=== PATIENT | male | born 1950 | race Caucasian/White ===

== ENCOUNTER 2020-12-17 06:08 | Inpatient (IN) ==
[~2020-12-17 06:08] MED LIST: Dextrose 50 % in Water (Vial) 30 ML, Sodium Bicarbonate 20 MEQ, Lidocaine 1% 5 ML, Insu... TH ONE; Dextrose 50 % in Water (Vial) 30 ML, Sodium Bicarbonate 20 MEQ, Potassium Chloride 15 M... TH ONE; Heparin 15,000 UNIT in 0.9 % Sodium Chloride 500 ML IV ONE; Norepinephrine 4 MG in 0.9 % Sodium Chloride 250 ML IVC PRN
[2020-12-17] MEDS ORDERED: Chlorhexidine Rinse 15 ML MOUTHWASH MM ONE (06:31)
[2020-12-17] MEDS ORDERED: CeFAZolin Syr 2,000MG/20 ML 2,000 MG/20 ML SYRINGE IVPB ONE (06:31)
[2020-12-17] MEDS ORDERED: Ringers Solution, Lactated 1,000 ML IVC SCH (06:45)
[2020-12-17] MEDS ORDERED: *HR* Vasopressin 20 UNIT/ML VIAL ONE (06:45)
[2020-12-17] MEDS ORDERED: *HR* Midazolam HCl 5 MG/5 ML VIAL IVP ONE (06:47)
[2020-12-17] MEDS ORDERED: *HR* FentaNYL (PF) 1,000 MCG/20 ML VIAL ONE (06:47)
[2020-12-17] MEDS ORDERED: *HR* Propofol 200 MG/20 ML VIAL IVP ONE (06:47)
[2020-12-17] MEDS ORDERED: Tranexamic Acid 1,000 MG/10 ML VIAL ONE (06:48)
[2020-12-17] MEDS ORDERED: *HR* Magnesium Sulfate 1 GM/2 ML VIAL ONE (06:48)
[2020-12-17] MEDS ORDERED: *HR* Rocuronium Bromide 50 MG/5 ML VIAL ONE ×3 (06:48→12:45)
[2020-12-17] MEDS ORDERED: Lidocaine 2% Syringe 100 MG/5 ML ONE (06:48)
[2020-12-17] MEDS ORDERED: Famotidine 20 MG/2 ML VIAL ONE (06:48)
[2020-12-17] MEDS ORDERED: Aspirin 81 MG TAB.CHEW PO ONE (06:59)
[2020-12-17 09:06] LABS: ABG Base Excess -2 mEq/L (-2 to 3); ABG Chloride 106 mEq/L (98-107); ABG Glucose 116 mg/dL (60-95); ABG HCO3 25 mEq/L (21-27); ABG Oxygen Saturation 100 % (95-98); ABG PCO2 49 mmHg (35-45); ABG PH 7.32 pH Units (7.32-7.45); ABG PO2 278 mmHg (85-104); ABG TCO2 27 mEq/L (20-26)
[2020-12-17] MEDS ORDERED: Vancomycin (wt based) 1,000 MG VIAL IVPB ONE (09:13)
[2020-12-17] MEDS ORDERED: Vancomycin 1,500 MG/265 ML IV.SOLN IVPB ONE (09:21)
[2020-12-17] MEDS ORDERED: *HR* FentaNYL (PF) 250 MCG/5 ML VIAL ONE (10:18)
[2020-12-17 10:31] LABS: ABG Base Excess -2 mEq/L (-2 to 3); ABG Chloride 106 mEq/L (98-107); ABG Glucose 125 mg/dL (60-95); ABG HCO3 24 mEq/L (21-27); ABG Ionized Calcium 1.09 mmol/L (1.15-1.35); ABG Oxygen Saturation 100 % (95-98); ABG PCO2 41 mmHg (35-45); ABG PH 7.37 pH Units (7.32-7.45); ABG PO2 200 mmHg (85-104); ABG TCO2 25 mEq/L (20-26)
[2020-12-17] MEDS ORDERED: Protamine Sulfate 50 MG/5 ML VIAL IVP ONE (11:29)
[2020-12-17] MEDS ORDERED: Protamine Sulfate 250 MG/25 ML VIAL IVP ONE (11:29)
[2020-12-17] MEDS ORDERED: Calcium Gluconate 1,000 MG/10 ML VIAL ONE (11:29)
[2020-12-17 11:33] LABS: ABG Base Excess -1 mEq/L (-2 to 3); ABG Chloride 103 mEq/L (98-107); ABG Glucose 127 mg/dL (60-95); ABG HCO3 25 mEq/L (21-27); ABG Ionized Calcium 1.08 mmol/L (1.15-1.35); ABG Oxygen Saturation 100 % (95-98); ABG PCO2 46 mmHg (35-45); ABG PH 7.34 pH Units (7.32-7.45); ABG PO2 485 mmHg (85-104); ABG TCO2 26 mEq/L (20-26)
[2020-12-17 12:13] LABS: ABG Base Excess -1 mEq/L (-2 to 3); ABG Chloride 103 mEq/L (98-107); ABG Glucose 140 mg/dL (60-95); ABG HCO3 24 mEq/L (21-27); ABG Ionized Calcium 1.07 mmol/L (1.15-1.35); ABG Oxygen Saturation 100 % (95-98); ABG PCO2 39 mmHg (35-45); ABG PH 7.39 pH Units (7.32-7.45); ABG PO2 477 mmHg (85-104); ABG TCO2 25 mEq/L (20-26)
[2020-12-17] MEDS ORDERED: Albumin Human 5% 12.5 GM/250 ML IV.SOLN ONE ×2 (12:26→12:55)
[2020-12-17 13:11] LABS: ABG Base Excess -3 mEq/L (-2 to 3); ABG Chloride 107 mEq/L (98-107); ABG Glucose 108 mg/dL (60-95); ABG HCO3 22 mEq/L (21-27); ABG Ionized Calcium 1.17 mmol/L (1.15-1.35); ABG Oxygen Saturation 99 % (95-98); ABG PCO2 38 mmHg (35-45); ABG PH 7.37 pH Units (7.32-7.45); ABG PO2 141 mmHg (85-104); ABG TCO2 23 mEq/L (20-26)
[2020-12-17] MEDS ORDERED: Acetaminophen 650 MG RECTAL SUPP RC PRN (13:11)
[2020-12-17] MEDS ORDERED: Ondansetron 4 MG/2 ML VIAL IVP PRN (13:11)
[2020-12-17] MEDS ORDERED: Naloxone 0.4 MG/ML INJ IVP PRN (13:11)
[2020-12-17] MEDS ORDERED: Albumin Human 5% 12.5 GM/250 ML IV.SOLN IVPB PRN (13:11)
[2020-12-17] MEDS ORDERED: Calcium Gluconate 1gm/50mL 1 GM/50 ML BAG IVPB PRN (13:11)
[2020-12-17] MEDS ORDERED: Acetaminophen 325 MG TABLET PO PRN (13:11)
[2020-12-17] MEDS ORDERED: Insulin Regular, Human 100 UNIT/ML IV PRN (13:11)
[2020-12-17] MEDS ORDERED: Potassium Chloride 40 MEQ/200 ML BAG IVPB PRN (13:11)
[2020-12-17] MEDS ORDERED: *HR* Dextrose 50 % in Water (Syg) 50 ML SYRINGE IVP PRN (13:11)
[2020-12-17] MEDS ORDERED: Albumin Human 25% 25 GM/100 ML IV.SOLN IVPB ONE (14:08)
[2020-12-17] MEDS ORDERED: *HR* Magnesium Sulfate 2 GM/50 ML PIGGYBACK IVPB ONE (14:08)
[2020-12-17] MEDS ORDERED: *HR* Phenylephrine 10 MG/ML VIAL IVC ONE (14:08)
[2020-12-17] MEDS ORDERED: Heparin 1,000 UNITS/500 mL IV.SOLN IR ONE (14:08)
[2020-12-17] MEDS ORDERED: D5% in Water 250 ML IV BAG IV ONE (14:08)
[2020-12-17] MEDS ORDERED: *HR* Heparin 10,000 UNIT/10 ML VIAL IR ONE (14:08)
[2020-12-17] MEDS ORDERED: Lidocaine 2% Syringe 100 MG/5 ML IVP ONE (14:08)
[2020-12-17] MEDS ORDERED: Mannitol 25% vial 12.5 GM/50 ML VIAL IVPB ONE (14:08)
[2020-12-17] MEDS ORDERED: Tranexamic Acid 1,000 MG/10 ML VIAL IR ONE (14:08)
[2020-12-17] MEDS: *HR* FentaNYL (PF) 100 MCG/2 ML VIAL IVP PRN ×5 (14:15→22:35)
[2020-12-17] MEDS ORDERED: niCARdipine 20 MG/200 ML MLS IVC ONE (14:19)
[2020-12-17] MEDS ORDERED: *HR* FentaNYL (PF) 100 MCG/2 ML VIAL ONE (14:34)
[2020-12-17 14:37] LABS: Basophils % 0.2 %; Eosinophils # 0.1 K/mcL (0.0-0.6); Eosinophils % 0.3 %; Hematocrit 40.3 % (37.5-50.1); Immature Granulocytes % 1.1 % (0-4); Lymphocytes # 1.3 K/mcL (0.6-4.6); Lymphocytes % 5.8 %; Mean Corpuscular HGB Conc 34.7 g/dL (31.6-35.5); Mean Corpuscular Hemoglobin 33.3 pg (28.0-33.3); Monocytes % 9.1 %; Neutrophils # 18.3 K/mcL (1.6-8.9); Platelet Count 127 K/mcL (140-400); Red Cell Distribution Width 11.8 % (11.5-14.5); Segmented Neutrophils % 83.5 %; White Blood Count 21.9 K/mcL (4.3-11.1)
[2020-12-17 14:37] LABS: ABG Base Excess -1 mEq/L (-2 to 3); ABG HCO3 26 mEq/L (21-27); ABG Oxygen Saturation 96 % (95-98); ABG PCO2 53 mmHg (35-45); ABG PH 7.31 pH Units (7.32-7.45); ABG PO2 92 mmHg (85-104); ABG TCO2 28 mEq/L (20-26); Blood Gas VT 600 cc
[2020-12-17 14:46] LABS: INR 1.3
[2020-12-17 14:48] LABS: Activated Partial Thrombo Time 30.3 Seconds (26.0-36.0)
[2020-12-17 14:51] LABS: BUN/Creatinine Ratio 19 (6-26); Blood Urea Nitrogen 17 mg/dL (8-23); Calcium 8.1 mg/dL (8.6-10.3); Carbon Dioxide 27 mEq/L (23-29); Chloride 109 mEq/L (98-107); Glucose 155 mg/dL (70-105); Magnesium 2.5 mg/dL (1.6-2.6); Osmolality,Calculated 293 (280-300); Potassium 3.7 mEq/L (3.5-5.1); Sodium 139 mEq/L (136-145); eGFR For African Americans > 60 (> 60); eGFR For Non-African Americans > 60 (> 60)
[2020-12-17 14:55] LABS: Prothrombin Time 14.2 Seconds (9.4-12.1)
[2020-12-17] MEDS: 0.9 % Sodium Chloride w KCl 20 MEQ/1,000 ML MLS IVC SCH (16:28)
[2020-12-17] MEDS: Pantoprazole 40 MG VIAL IVP SCH (16:29)
[2020-12-17] MEDS: CeFAZolin 2 GM/120 ML BAG IVPB SCH (16:29)
[2020-12-17] MEDS: Metoclopramide 10 MG/2 ML VIAL IVP SCH (17:15)
[2020-12-17 18:20] LABS: ABG Base Excess -2 mEq/L (-2 to 3); ABG HCO3 24 mEq/L (21-27); ABG Oxygen Saturation 98 % (95-98); ABG PCO2 41 mmHg (35-45); ABG PH 7.36 pH Units (7.32-7.45); ABG PO2 105 mmHg (85-104); ABG TCO2 25 mEq/L (20-26); Blood Gas Modality CPAP/PS; Blood Gas Pressure Support 5 cm H2O
[2020-12-17] MEDS: *HR* OxyCODONE/APAP 5/325 TABLET PO PRN (19:59)
[2020-12-17] MEDS: Chlorhexidine Rinse 15 ML MOUTHWASH MM SCH (19:59)
[2020-12-17 20:17] LABS: ABG Base Excess -3 mEq/L (-2 to 3); ABG HCO3 22 mEq/L (21-27); ABG Oxygen Saturation 93 % (95-98); ABG PCO2 39 mmHg (35-45); ABG PH 7.36 pH Units (7.32-7.45); ABG PO2 71 mmHg (85-104); ABG TCO2 23 mEq/L (20-26); Blood Gas Modality 5LPM
[2020-12-17] MEDS: niCARdipine 20 MG/200 ML MLS IVC SCH (20:21)
[2020-12-17] MEDS: Norepinephrine 4 MG/254 ML IV.SOLN IVC SCH (20:22)
[2020-12-18] MEDS: Metoclopramide 10 MG/2 ML VIAL IVP SCH ×5 (00:17→23:23)
[2020-12-18] MEDS: CeFAZolin 2 GM/120 ML BAG IVPB SCH (00:18)
[2020-12-18] MEDS: *HR* OxyCODONE/APAP 5/325 TABLET PO PRN ×5 (00:21→23:21)
[2020-12-18 05:11] LABS: INR 1.3; Prothrombin Time 14.5 Seconds (9.4-12.1)
[2020-12-18 05:14] LABS: Activated Partial Thrombo Time 27.1 Seconds (26.0-36.0)
[2020-12-18 05:24] LABS: BUN/Creatinine Ratio 23 (6-26); Blood Urea Nitrogen 23 mg/dL (8-23); Calcium 7.8 mg/dL (8.6-10.3); Carbon Dioxide 21 mEq/L (23-29); Chloride 104 mEq/L (98-107); Glucose 169 mg/dL (70-105); Magnesium 1.9 mg/dL (1.6-2.6); Osmolality,Calculated 284 (280-300); Potassium 4.2 mEq/L (3.5-5.1); Sodium 133 mEq/L (136-145); eGFR For African Americans > 60 (> 60); eGFR For Non-African Americans > 60 (> 60)
[2020-12-18] MEDS: *HR* FentaNYL (PF) 100 MCG/2 ML VIAL IVP PRN ×3 (07:01→10:17)
[2020-12-18] MEDS: Pantoprazole 40 MG VIAL IVP SCH (08:22)
[2020-12-18] MEDS: Chlorhexidine Rinse 15 ML MOUTHWASH MM SCH ×2 (08:22→20:46)
[2020-12-18 08:26] LABS: Basophils % 0.1 %; Hematocrit 35.2 % (37.5-50.1); Immature Granulocytes % 0.5 % (0-4); Lymphocytes # 1.6 K/mcL (0.6-4.6); Mean Corpuscular HGB Conc 34.4 g/dL (31.6-35.5); Mean Corpuscular Hemoglobin 33.3 pg (28.0-33.3); Mean Platelet Volume 11.3 fL (9.4-12.4); Monocytes # 2.5 K/mcL (0.0-1.3); Monocytes % 12.4 %; Platelet Count 125 K/mcL (140-400); Red Blood Count 3.63 M/mcL (4.19-5.50); White Blood Count 20.3 K/mcL (4.3-11.1)
[2020-12-18 08:32] LABS: Hemoglobin 12.1 g/dL (12.9-16.9)
[2020-12-18] MEDS ORDERED: Aspirin Enteric Coated 81 MG Tablet PO SCH (09:00)
[2020-12-18] MEDS ORDERED: Furosemide 20 MG/2 ML VIAL IVP SCH (09:00)
[2020-12-18] MEDS: 0.9 % Sodium Chloride w KCl 20 MEQ/1,000 ML MLS IVC SCH (11:28)
[2020-12-18] MEDS ORDERED: D5% in Water 1,000 ML IVC PRN (14:43)
[2020-12-18] MEDS ORDERED: Acetaminophen 325 MG TABLET PO PRN (14:43)
[2020-12-18] MEDS ORDERED: *HR* Dextrose 50 % in Water (Syg) 50 ML SYRINGE IVP PRN (14:43)
[2020-12-18] MEDS ORDERED: Insulin Regular, Human 100 UNIT/ML IV PRN (14:43)
[2020-12-18] MEDS ORDERED: Naloxone 0.4 MG/ML INJ IVP PRN (14:43)
[2020-12-18] MEDS ORDERED: NON-FORMULARY MEDICATION 1 EACH EACH (Ipratropium/Albuterol Sulfate 4 GM Mist.Inhal) IH PRN (14:43)
[2020-12-18] MEDS ORDERED: Ondansetron 4 MG/2 ML VIAL IVP PRN (14:43)
[2020-12-18] MEDS ORDERED: Dextrose Gel 15 GM/37.5 ML TUBE PO PRN ×2 (14:43)
[2020-12-18] MEDS: Insulin LISPRO 300 UNITS/3 ML VIAL SUBQ SCH ×3 (16:54→20:39)
[2020-12-18] MEDS: Fluticasone Propionate Nasal 50 MCG/SPRAY BOTTLE NS SCH ×2 (16:54→20:47)
[2020-12-18] MEDS: Furosemide 20 MG/2 ML VIAL IVP SCH (17:23)
[2020-12-18] MEDS: *HR* Heparin 5,000 UNIT/ML VIAL SQ SCH (17:24)
[2020-12-18] MEDS: Budesonide/Formoterol 80/4.5 1 PUFF INH IH SCH (19:52)
[2020-12-19 05:45] LABS: Basophils % 0.2 %; Eosinophils % 0.2 %; Hematocrit 34.1 % (37.5-50.1); Immature Granulocytes % 0.9 % (0-4); Lymphocytes # 2.4 K/mcL (0.6-4.6); Lymphocytes % 11.3 %; Mean Corpuscular HGB Conc 35.2 g/dL (31.6-35.5); Mean Corpuscular Hemoglobin 34.2 pg (28.0-33.3); Mean Corpuscular Volume 97.2 fL (83.0-100.0); Mean Platelet Volume 10.7 fL (9.4-12.4); Monocytes % 14.2 %; Neutrophils # 15.3 K/mcL (1.6-8.9); Platelet Count 115 K/mcL (140-400); Red Blood Count 3.51 M/mcL (4.19-5.50); Red Cell Distribution Width 12.1 % (11.5-14.5); Segmented Neutrophils % 73.2 %; White Blood Count 20.9 K/mcL (4.3-11.1)
[2020-12-19 05:53] LABS: BUN/Creatinine Ratio 29 (6-26); Blood Urea Nitrogen 20 mg/dL (8-23); Carbon Dioxide 23 mEq/L (23-29); Chloride 107 mEq/L (98-107); Glucose 127 mg/dL (70-105); Osmolality,Calculated 286 (280-300); Potassium 3.8 mEq/L (3.5-5.1); Sodium 136 mEq/L (136-145); eGFR For African Americans > 60 (> 60); eGFR For Non-African Americans > 60 (> 60)
[2020-12-19] MEDS: *HR* OxyCODONE/APAP 5/325 TABLET PO PRN ×4 (06:09→22:55)
[2020-12-19] MEDS: *HR* Heparin 5,000 UNIT/ML VIAL SQ SCH ×2 (06:09→18:23)
[2020-12-19] MEDS: Metoclopramide 10 MG/2 ML VIAL IVP SCH ×4 (06:10→22:55)
[2020-12-19] MEDS: Budesonide/Formoterol 80/4.5 1 PUFF INH IH SCH ×2 (07:48→19:25)
[2020-12-19] MEDS: Insulin LISPRO 300 UNITS/3 ML VIAL SUBQ SCH ×4 (08:01→19:59)
[2020-12-19] MEDS: Pantoprazole 40 MG VIAL IVP SCH (09:10)
[2020-12-19] MEDS: Furosemide 20 MG/2 ML VIAL IVP SCH ×2 (09:11→18:23)
[2020-12-19] MEDS: Loratadine 10 MG TABLET PO SCH (09:12)
[2020-12-19] MEDS: Fluticasone Propionate Nasal 50 MCG/SPRAY BOTTLE NS SCH ×2 (09:13→19:59)
[2020-12-19] MEDS: Aspirin Enteric Coated 81 MG Tablet PO SCH (09:14)
[2020-12-19] MEDS: Chlorhexidine Rinse 15 ML MOUTHWASH MM SCH ×2 (09:14→21:38)
[2020-12-20] MEDS: Metoclopramide 10 MG/2 ML VIAL IVP SCH ×3 (05:03→17:47)
[2020-12-20] MEDS: *HR* Heparin 5,000 UNIT/ML VIAL SQ SCH ×2 (05:03→17:46)
[2020-12-20] MEDS: *HR* OxyCODONE/APAP 5/325 TABLET PO PRN ×4 (05:08→21:16)
[2020-12-20] MEDS: Insulin LISPRO 300 UNITS/3 ML VIAL SUBQ SCH ×4 (07:39→19:47)
[2020-12-20] MEDS: Budesonide/Formoterol 80/4.5 1 PUFF INH IH SCH ×2 (07:46→19:26)
[2020-12-20] MEDS: Pantoprazole 40 MG VIAL IVP SCH (07:48)
[2020-12-20] MEDS: Loratadine 10 MG TABLET PO SCH (07:48)
[2020-12-20] MEDS: Aspirin Enteric Coated 81 MG Tablet PO SCH (07:48)
[2020-12-20] MEDS: Chlorhexidine Rinse 15 ML MOUTHWASH MM SCH ×2 (07:48→21:15)
[2020-12-20] MEDS: Furosemide 20 MG/2 ML VIAL IVP SCH (07:49)
[2020-12-20] MEDS: Fluticasone Propionate Nasal 50 MCG/SPRAY BOTTLE NS SCH ×2 (07:54→21:16)
[2020-12-21] MEDS: *HR* Heparin 5,000 UNIT/ML VIAL SQ SCH ×2 (05:34→18:24)
[2020-12-21] MEDS: COMBIVENT RESPIMAT IH PRN ×2 (05:35→16:00)
[2020-12-21] MEDS: *HR* OxyCODONE/APAP 5/325 TABLET PO PRN ×4 (05:35→20:38)
[2020-12-21] MEDS: Insulin LISPRO 300 UNITS/3 ML VIAL SUBQ SCH ×4 (07:24→20:35)
[2020-12-21] MEDS: Loratadine 10 MG TABLET PO SCH (07:38)
[2020-12-21] MEDS: Aspirin Enteric Coated 81 MG Tablet PO SCH (07:38)
[2020-12-21] MEDS: Chlorhexidine Rinse 15 ML MOUTHWASH MM SCH ×2 (07:39→20:39)
[2020-12-21] MEDS: Fluticasone Propionate Nasal 50 MCG/SPRAY BOTTLE NS SCH ×2 (07:39→20:39)
[2020-12-21] MEDS: Pantoprazole 40 MG VIAL IVP SCH (07:39)
[2020-12-21] MEDS: Budesonide/Formoterol 80/4.5 1 PUFF INH IH SCH ×2 (10:29→19:30)
[2020-12-22] MEDS: *HR* OxyCODONE/APAP 5/325 TABLET PO PRN ×2 (00:46→05:49)
[2020-12-22] MEDS: COMBIVENT RESPIMAT IH PRN (05:30)
[2020-12-22] MEDS: *HR* Heparin 5,000 UNIT/ML VIAL SQ SCH (05:49)
[2020-12-22 06:37] VITALS: BP 140/72; PULSE 99; TEMP 98.7; O2SAT 98
[2020-12-22] MEDS: Insulin LISPRO 300 UNITS/3 ML VIAL SUBQ SCH (07:26)
[2020-12-22] MEDS: Aspirin Enteric Coated 81 MG Tablet PO SCH (07:39)
[2020-12-22] MEDS: Chlorhexidine Rinse 15 ML MOUTHWASH MM SCH (07:39)
[2020-12-22] MEDS: Loratadine 10 MG TABLET PO SCH (07:39)
[2020-12-22] MEDS: Fluticasone Propionate Nasal 50 MCG/SPRAY BOTTLE NS SCH (07:40)
[2020-12-22] MEDS: Budesonide/Formoterol 80/4.5 1 PUFF INH IH SCH (08:11)
== END 2020-12-22 10:45 | disposition home or self-care (01) | DRG 234 ==
LOC: SAMDAY 06:08 → ICNU 13:44 → 2NNU 12-18 15:03
PROVIDERS: ADMIT Thoracic Surgery (Cardiothoracic Vascular Surgery); ATTEND Thoracic Surgery (Cardiothoracic Vascular Surgery)

== ENCOUNTER 2021-07-11 21:18 | Inpatient (IN) ==
[2021-07-11] MEDS ORDERED: Aspirin 325 MG TABLET PO ONE (22:02)
[2021-07-11] MEDS ORDERED: Nitroglycerin 0.4 MG TAB.SUBL SL STA (22:08)
[2021-07-11 22:16] LABS: INR 0.9; Prothrombin Time 10.4 Seconds (9.4-12.1)
[2021-07-11 22:18] LABS: Activated Partial Thrombo Time 26.7 Seconds (26.0-36.0)
[2021-07-11 22:19] LABS: Basophils % 0.2 %; Eosinophils # 0.4 K/mcL (0.0-0.6); Eosinophils % 2.9 %; Hematocrit 46.6 % (37.5-50.1); Hemoglobin 16.1 g/dL (12.9-16.9); Immature Granulocytes % 0.7 % (0-4); Lymphocytes # 4.1 K/mcL (0.6-4.6); Lymphocytes % 29.9 %; Mean Corpuscular HGB Conc 34.5 g/dL (31.6-35.5); Mean Corpuscular Hemoglobin 32.1 pg (28.0-33.3); Mean Corpuscular Volume 92.8 fL (83.0-100.0); Mean Platelet Volume 9.9 fL (9.4-12.4); Monocytes # 2.1 K/mcL (0.0-1.3); Monocytes % 15.3 %; Neutrophils # 6.9 K/mcL (1.6-8.9); Platelet Count 247 K/mcL (140-400); Red Blood Count 5.02 M/mcL (4.19-5.50); Red Cell Distribution Width 13.2 % (11.5-14.5); White Blood Count 13.6 K/mcL (4.3-11.1)
[2021-07-11 22:31] LABS: Troponin I < 0.03 ng/mL (< 0.04)
[2021-07-11 22:37] LABS: Alanine Aminotransferase 41 Units/L (7-52); Albumin 3.5 g/dL (3.5-5.7); Albumin/Globulin Ratio 1.4 (1.1-2.2); Alkaline Phosphatase 47 Units/L (34-104); Aspartate Amino Transferase 21 Units/L (13-39); BUN/Creatinine Ratio 22 (6-26); Bilirubin,Direct 0.1 mg/dL (0.0-0.2); Bilirubin,Indirect 0.2 mg/dL (0.0-1.0); Bilirubin,Total 0.3 mg/dL (0.3-1.0); Blood Urea Nitrogen 22 mg/dL (8-23); Calcium 8.6 mg/dL (8.6-10.3); Carbon Dioxide 21 mEq/L (23-29); Chloride 101 mEq/L (98-107); Globulin 2.5 g/dL (2.4-3.5); Glucose 106 mg/dL (70-105); Osmolality,Calculated 280 (280-300); Potassium 4.3 mEq/L (3.5-5.1); Sodium 133 mEq/L (136-145); eGFR For African Americans > 60 (> 60); eGFR For Non-African Americans > 60 (> 60)
[2021-07-11] MEDS ORDERED: *HR* Heparin 5,000 UNIT/ML VIAL IVP ONE (22:41)
[2021-07-11] MEDS ORDERED: *HR* Heparin 5,000 UNIT/ML VIAL IVP PRN ×2 (22:41)
[2021-07-11] MEDS ORDERED: Heparin 25,000UNIT/250ML 1/2NS 25,000 UNIT/250 ML IV.SOLN IVC SCH (22:45)
[2021-07-11 22:56] LABS: Heparin anti-factor XA UFH < 0.04 IU/mL (0.30-0.70)
[2021-07-11] MEDS ORDERED: *HR* FentaNYL (PF) 100 MCG/2 ML VIAL ONE (22:57)
[2021-07-11] MEDS ORDERED: Nitroglycerin 1,000 MCG/5 ML VIAL IV ONE (22:58)
[2021-07-11] MEDS ORDERED: 0.9 % Sodium Chloride 1,000 ML ONE (22:58)
[2021-07-11] MEDS ORDERED: *HR* Midazolam HCl 2 MG/2 ML VIAL ONE (22:58)
[2021-07-11] MEDS ORDERED: *HR* Heparin 10,000 UNIT/10 ML VIAL ONE (22:58)
[2021-07-11] MEDS ORDERED: Heparin 1,000 UNITS/500 mL 500 ML ONE (22:58)
[2021-07-11] MEDS ORDERED: ISOVUE-370 200 ML INFUS..BTL ONE ×2 (22:58→23:45)
[2021-07-11] MEDS ORDERED: Tirofiban 12.5 MG/250ML 12.5 MG/250 ML BAG ONE (23:03)
[2021-07-12] MEDS ORDERED: Perflutren Lipid Microsphere 1.3 ML in 0.9 % Sodium Chloride 8.7 ML IVP PRN (00:16)
[2021-07-12] MEDS ORDERED: Tirofiban 12.5 MG/250ML 12.5 MG/250 ML BAG IVC SCH (00:30)
[2021-07-12 06:57] LABS: Basophils % 0.3 %; Eosinophils # 0.2 K/mcL (0.0-0.6); Hematocrit 47.8 % (37.5-50.1); Hemoglobin 16.6 g/dL (12.9-16.9); Immature Granulocytes % 0.5 % (0-4); Lymphocytes # 3.3 K/mcL (0.6-4.6); Lymphocytes % 28.3 %; Mean Corpuscular HGB Conc 34.7 g/dL (31.6-35.5); Mean Corpuscular Volume 92.1 fL (83.0-100.0); Monocytes # 1.6 K/mcL (0.0-1.3); Neutrophils # 6.3 K/mcL (1.6-8.9); Platelet Count 240 K/mcL (140-400); Red Blood Count 5.19 M/mcL (4.19-5.50); Red Cell Distribution Width 13.2 % (11.5-14.5); Segmented Neutrophils % 54.9 %; White Blood Count 11.5 K/mcL (4.3-11.1)
[2021-07-12 07:17] LABS: BUN/Creatinine Ratio 21 (6-26); Blood Urea Nitrogen 17 mg/dL (8-23); Calcium 8.9 mg/dL (8.6-10.3); Carbon Dioxide 24 mEq/L (23-29); Chloride 102 mEq/L (98-107); Glucose 119 mg/dL (70-105); Osmolality,Calculated 279 (280-300); Potassium 4.4 mEq/L (3.5-5.1); Sodium 133 mEq/L (136-145); eGFR For African Americans > 60 (> 60); eGFR For Non-African Americans > 60 (> 60)
[2021-07-12] MEDS: Aspirin 81 MG TAB.CHEW PO SCH (09:10)
[2021-07-12] MEDS: Metoprolol XL (24 HR) Succ 25 MG TAB.ER.24H PO SCH (09:10)
[2021-07-12] MEDS ORDERED: Ipratropium/Albuterol Neb 3 ML IH PRN (11:14)
[2021-07-12] MEDS ORDERED: Budesonide/Formoterol 80/4.5 1 PUFF INH IH ONE (11:57)
[2021-07-12] MEDS: Budesonide/Formoterol 80/4.5 1 PUFF INH IH SCH (12:15)
[2021-07-12] MEDS ORDERED: Acetaminophen 325 MG TABLET PO PRN (20:00)
[2021-07-13 06:36] VITALS: O2SAT 96
[2021-07-13 07:05] VITALS: TEMP 98.1
[2021-07-13] MEDS: Budesonide/Formoterol 80/4.5 1 PUFF INH IH SCH (07:36)
[2021-07-13] MEDS: Aspirin 81 MG TAB.CHEW PO SCH (08:00)
[2021-07-13] MEDS: Metoprolol XL (24 HR) Succ 25 MG TAB.ER.24H PO SCH (08:00)
[2021-07-13] MEDS ORDERED: Spironolactone 12.5 MG TABLET PO SCH (09:00)
[2021-07-13] MEDS ORDERED: Cholecalciferol (D-3) 1,000 UNIT (25MCG) TABLET PO SCH (09:00)
[2021-07-13] MEDS ORDERED: Nitroglycerin 0.4 MG TAB.SUBL SL PRN (10:24)
[2021-07-13 12:05] VITALS: BP 134/64
[2021-07-13 16:20] VITALS: PULSE 74
== END 2021-07-13 16:24 | disposition home or self-care (01) | DRG 247 ==
LOC: EMEROOARM 21:18 → ICNU 21:18 → 2NNU 07-13 06:33
PROVIDERS: ADMIT Internal Medicine Cardiovascular Disease; ATTEND Internal Medicine Cardiovascular Disease